=== PATIENT | male | born 1990 | race Caucasian/White ===

== ENCOUNTER 2021-10-06 13:14 | Outpatient (REF) | payer BC, SELFPAY ==
[2021-10-06 15:12] LABS: Binax Now Covid-19 Ag Negative (Negative)
[2021-10-06 15:13] LABS: Binax Internal Control QC Valid
== END 2021-10-06 13:15 | disposition home or self-care (01) ==
LOC: HO.LAB 13:14
PROVIDERS: Visit Provider Internal Medicine
DX: Z20.822 Contact with and (suspected) exposure to COVID-19 (principal)
CPT/HCPCS: 36415; C9803